=== PATIENT | male | born 1935 | race Caucasian/White ===

== ENCOUNTER → 2016-09-03 | Outpatient (CLI) | payer MEDICARE, OTHER ==
[~2016-09-03] MED LIST: ASPIRIN EC81 MG PO; FLOMAX0.4 MG PO; GLUCOTROL 5MG XL5 MG PO; LEVOTHROID (SY50 MCG PO; ZESTRIL40 MG PO
== END | disposition disaster alternative care site (69) ==
LOC: GOPD 08-29 12:00 → GRAD 08:59 → GOPD 09:30
DX: I35.0 Nonrheumatic aortic (valve) stenosis (principal); K55.1 Chronic vascular disorders of intestine; I70.1 Atherosclerosis of renal artery; Z79.84 Long term (current) use of oral hypoglycemic drugs
CPT/HCPCS: J2001; J7060; Q9967